=== PATIENT | female | born 1935 | race Caucasian/White ===

== ENCOUNTER → 2017-04-10 | Outpatient (CLI) | payer MEDICARE ==
--- NOTE | ~2017-04-10 | ECH ---
Transthoracic Echocardiography Report (TTE) Demographics Patient Name DINO GATES Date of Study 04/10/2017 Patient Number [id number] Visit Number [id number] Date of 1935 Room Number Accession Number [id number] Gender Female Age 81 year(s) Referring Quinn Vivar Interactive Multimedia Designer Libby Saunders [facility] Physician Physician Interpreting Danny Aaron MD [employer] Leader Physician Supervising Ordering Physician Quinn Vivar MD/MLP Nurse Stress Weekend Caregiver Conclusions Summary Technically fair exam. The estimated left ventricular ejection fraction is 60-65%. Mild to moderate concentric left ventricular hypertrophy. Diastolic assessment reveals Grade I diastolic dysfunction. Procedure Type of Study TTE procedure:Echo Complete SF. Procedure Date Date: 04/10/2017 Start: : Technical Quality: Adequate visualization Indications:Abnormal ECG and pre surgical clearance. Appropriate Use Criteria: 9 Height: 66 inches Weight: 175 pounds BSA: 1.89 m Rhythm: Sinus bradycardia HR: 84 bpm BP: 94/55 mmHg M-Mode/2D Measurements LV Diastolic Dimension: 3.59 cm LV Systolic Dimension: 3.31 cm LV Septum Diastolic: 1.25 cm LV PW Diastolic: 1.25 cm AO Root Dimension: 2.66 cm Cardiac Output: 3.95 l/min LA Dimension: 3.6 cm Cardiac Index: 2.09 l/min*m RV Diastolic Dimension: 3.09 cm LA volume index: 14 ml/m LVOT: 2.11 cm LVOT VTI: 13.47 cm RV Base: 3.97 cm LV Stroke volume: 47.08 ml RV Mid: 3.57 cm LV Stroke volume index: 24.91 ml/m RV Length: 6.16 cm TAPSE: 2 cm Doppler Measurements AV Peak Velocity: 1.06 m/s MV Peak E-Wave: 0.43 m/s AV Peak Gradient: 4.49 mmHg MV Peak A-Wave: 0.99 m/s AV Mean Gradient: 2.55 mmHg MV E/A Ratio: 0.43 LVOT Peak Velocity: 0.93 m/s AV Area (Continuity):2.96 cm RA Area: 13.18 cm Findings Left Ventricle The left ventricle is normal in size . Mild to moderate concentric left ventricular hypertrophy. Diastolic assessment reveals Grade I diastolic dysfunction. Right Ventricle Normal right ventricle structure and function. Left Atrium Normal left atrial size. Right Atrium Normal right atrial size. Mitral Valve Normal mitral valve structure and function. Aortic Valve The aortic valve was not well imaged. Tricuspid Valve Normal tricuspid valve structure and function. Pulmonic Valve The pulmonic valve is not well visualized. Pericardial Effusion No evidence of pericardial effusion. Miscellaneous Visualized portions of the aortic root and ascending aorta appear normal in size. Pleural Effusion No evidence of pleural effusion. Signature
== END | disposition home or self-care (01) ==
LOC: CARD 13:00
DX: R94.31 Abnormal electrocardiogram [ECG] [EKG] (principal); I51.7 Cardiomegaly